=== PATIENT | male | born 1960 | race Caucasian/White ===

== ENCOUNTER 2018-11-25 19:31 | Outpatient (CLI) | payer SELFPAY | END 2018-11-25 19:32 | disposition home or self-care (01) | LOC: C.SLEEP 19:32 | DX: G47.33 Obstructive sleep apnea (adult) (pediatric) (principal) ==

== ENCOUNTER 2019-01-04 18:13 | Outpatient (CLI) | payer SELFPAY | END 2019-01-04 18:14 | disposition home or self-care (01) | LOC: C.SLEEP 18:14 | DX: G47.33 Obstructive sleep apnea (adult) (pediatric) (principal) ==